=== PATIENT | male | born 1955 | race Caucasian/White ===

== ENCOUNTER 2016-12-25 09:54 | Outpatient (CLI) | payer OTHER | END 2016-12-25 10:00 | LOC: LAB 09:54 | PROVIDERS: ATTEND Family Medicine | DX: E11.9 Type 2 diabetes mellitus without complications (principal); Z12.5 Encounter for screening for malignant neoplasm of prostate | CPT/HCPCS: 36415; 82043; 83036; 84153 ==

== ENCOUNTER 2017-03-16 09:11 | Outpatient (CLI) | payer OTHER | END 2017-03-16 09:12 | LOC: LAB 09:11 | PROVIDERS: ATTEND Family Medicine | DX: E11.9 Type 2 diabetes mellitus without complications (principal) | CPT/HCPCS: 36415; 82043; 83036 ==

== ENCOUNTER 2017-11-19 08:55 | Outpatient (CLI) | payer OTHER ==
[2017-11-19 10:06] LABS: eGFR (African) > 60; eGFR (Non-African) > 60
== END 2017-11-19 09:00 ==
LOC: LAB 08:55
PROVIDERS: ATTEND Family Medicine
DX: E11.9 Type 2 diabetes mellitus without complications (principal)
CPT/HCPCS: 36415; 80053; 80061; 83036

== ENCOUNTER 2018-12-13 15:46 | Outpatient (CLI) | payer OTHER ==
[2018-12-13 16:28] LABS: eGFR (Non-African) > 60
== END 2018-12-13 16:05 ==
LOC: LAB 15:46
PROVIDERS: ATTEND Family Medicine
DX: E11.9 Type 2 diabetes mellitus without complications (principal)
CPT/HCPCS: 36415; 80053; 80061; 83036

== ENCOUNTER 2019-07-19 09:18 | Outpatient (CLI) | payer OTHER | END 2019-07-19 09:20 | LOC: LAB 09:18 | PROVIDERS: ATTEND Family Medicine | DX: E11.9 Type 2 diabetes mellitus without complications (principal) | CPT/HCPCS: 36415; 83036 ==

== ENCOUNTER 2019-12-09 12:44 | Outpatient (CLI) | payer OTHER ==
--- NOTE | 2019-12-09 19:39 | Diagnostic Imaging Report ---
PATIENT MR#: [id number] PATIENT PATIENT NAME: GEOREG CLANCY DATE OF : 1955 REFERRING PHYSICIAN: Adrianne Cantu EXAM DATE: 12/09/2019 ACCESSION NUMBER: [id number] EXAM DESCRIPTION: US DUPLEX ARTERIAL LE BILAT CLINICAL HISTORY: DIMINISHED PULSES IN EXTREMITIES TECHNIQUE: Duplex ultrasound of the bilateral lower extremity arteries was performed with Doppler spe ctral analysis and color flow imaging. BILATERAL LOWER EXTREMITY ARTERIAL DUPLEX ULTRASOUND: Right common femoral: 121 cm/s Right deep femoral: 89 cm/s Right superficial femoral proximal: 99 cm/s Right superficial femoral mid: 81 cm/s Right superficial femoral distal: 105 cm/s Right popliteal: 81 cm/s Right posterior tibial: 111 cm/s Right dorsalis pedis: 63 cm/s, triphasic Left common femoral: 96 cm/s Left deep femoral: 70 cm/s Left superficial femoral proximal: 109 cm/s Left superficial femoral mid: 105 cm/s Left superficial femoral distal: 85 cm/s Left popliteal: 68 cm/s Left posterior tibial: 80 cm/s Left dorsalis pedis: 84 cm/s, triphasic IMPRESSION: No evidence of hemodynamically significant stenosis in the bilateral lower extremity madelaine deirdre. Read by: Dr. Keith Banks Transcribed by: Keith Banks Transcribed Date: 12/09/2019 7:38:27 PM Electronically signed by: Dr. Keith Banks Date signed: 12/09/2019 7:38:27 PM
== END 2019-12-09 12:54 ==
LOC: RAD 12:44
PROVIDERS: ATTEND Family Medicine
DX: R09.89 Other specified symptoms and signs involving the circulatory and respiratory systems (principal)